=== PATIENT | female | born 1960 | race African-American/Black ===

== ENCOUNTER 2020-03-21 23:40 | Emergency (ER) | payer OTHER ==
[~2020-03-21] VITALS: Ht 165.1 cm; Wt 81.6 kg
--- NOTE | 2020-03-21 23:44 | NUR ---
ED Nurse Note: [facility] [id number] brought pt from [facility] living c/o 10/10 abdominal pain with constipation, N/V for 2 days. Pt is A&OX4, VSS. PT has had these symptoms in the past.
[2020-03-21 23:47] VITALS: BP 155/99
--- NOTE | 2020-03-21 23:56 | Emergency Room Report ---
History of Present Illness General Chief Complaint: Abdominal Pain Source: Patient Present Illness HPI This is a 60-year-old female with a history of high blood pressure and acid reflux. She presents with chief complaint abdominal pain. Onset for last 3 to 4 days. Worse tonight. She had 2 episode of vomiting. No diarrhea. Last bowel movement was 5 days ago. Denies any fever or chills. Pain is diffuse in nature. Pain is sharp. Pain is 9 out of 10. No urinary complaint. Allergies: Coded Allergies: No Known Allergies (Unverified , 03/21/20) COVID-19 Screening Contact w/high risk pt: No Experienced COVID-19 symptoms?: No COVID-19 Testing performed MANAGER DRUG: No Patient History Past Medical History: see triage record, old chart reviewed, HTN Past Surgical History: Pertinent Family History: none Social History: Reports: smoking Now: No Immunizations: other Reviewed Nursing Documentation: PMH: Agreed; PSxH: Agreed Nursing Documentation-PMH Hx Hypertension: Yes Hx Gastrointestinal Problems: Yes Review of Systems Eye: Denies: eye pain, blurred vision ENT: Denies: ear pain, nose congestion, throat swelling Respiratory: Denies: cough, shortness of breath Cardiovascular: Denies: chest pain, palpitations Gastrointestinal: Reports: abdominal pain, nausea, vomiting; Denies: diarrhea Musculoskeletal: Denies: back pain, joint pain Skin: Denies: rash Neurological: Denies: headache, numbness Endocrine: Denies: increased thirst, increased urine Hematologic/Lymphatic: Denies: easy bruising All Other Systems: negative except mentioned in HPI Physical Exam Vital Signs Date Time Temp Pulse Resp B/P (MAP) Pulse Ox O2 Delivery O2 Flow Rate FiO2 03/21/20 23:41 98.8 97 16 155/99 (117) 97 Room Air Vitals with high blood pressure Sp02 EP Interpretation: reviewed, normal General Appearance: well appearing, no apparent distress, alert, obese Head: normocephalic, atraumatic Eyes: bilateral eye PERRL, bilateral eye EOMI ENT: hearing grossly normal, normal pharynx Neck: full range of motion, supple, no meningismus Respiratory: chest non-tender, lungs clear, normal breath sounds Cardiovascular #1: regular rate, rhythm, no murmur Gastrointestinal: normal bowel sounds, no mass, no organomegaly, no bruit, non- distended, tenderness - Diffuse Musculoskeletal: back normal, normal range of motion, gait/station normal Psychiatric: mood/affect normal Medical Decision Making Diagnostic Impression: Primary Impression: Abdominal pain Qualified Codes: R10.84 - Generalized abdominal pain Additional Impressions: UTI (urinary tract infection) Qualified Codes: N30.00 - Acute cystitis without hematuria Fibroid PCP (phencyclidine) abuse Paraesophageal hiatal hernia ER Course Presents with abdominal pain. Pain is well controlled now. No evidence of any obstruction or acute abdomen. Findings are chronic in nature. Will discharge home. Dose of antibiotics given here. CT/MRI/US Diagnostic Results CT/MRI/US Diagnostic Results : Imaging Test Ordered: CT abdomen and pelvis Impression Read by radiologist. Large fibroid. Moderate hiatal hernia. Hepatomegaly with fatty liver. Last Vital Signs Date Time Temp Pulse Resp B/P (MAP) Pulse Ox O2 Delivery O2 Flow Rate FiO2 03/21/20 23:47 97 16 Room Air 03/21/20 23:47 98.8 155/99 97 Status: improved Disposition: HOME, SELF-CARE Condition: Stable Scripts Omeprazole Magnesium (PRILOSEC OTC) 20 Mg Tablet.dr 20 MG ORAL DAILY, #30 TAB Prov: Jeremy Parsons MD 03/22/20 Nitrofurantoin Monohyd/M-Cryst (Nitrofurantoin [place]-Mcr 100 mg) 100 Mg Capsule 100 MG ORAL Q12H, #14 CAP Prov: Jeremy Parsons MD 03/22/20 Patient Instructions: Abdominal Pain, Adult Additional Instructions: Stop using drugs. Follow-up with your doctor in 7 days. Return if symptoms worsen. Jeremy Prasons MD Mar 21, 2020 23:56
[2020-03-22] MEDS ORDERED: Morphine Sulfate 4mg/ml Inj (IV USE ONLY) IVP ONE
[2020-03-22] MEDS ORDERED: Omnipaque-300 100ml vial INJ PRN
[2020-03-22 00:24] LABS: BASOPHILS % (AUTO) 1.1 % (0.0-2.0); EOSINOPHILS % (AUTO) 1.1 % (0.0-3.0); HEMOGLOBIN 12.6 G/DL (12.0-16.0); LYMPHOCYTES % (AUTO) 45.8 % (20.0-45.0); MEAN CORPUSCULAR VOLUME 86 FL (80-99); MONOCYTES % (AUTO) 5.9 % (1.0-10.0); NEUTROPHILS % (AUTO) 46.2 % (45.0-75.0); PLATELET COUNT 165 K/UL (150-450); RED BLOOD COUNT 4.55 M/UL (4.20-5.40); RED CELL DISTRIBUTION WIDTH 14.8 % (11.6-14.8); WHITE BLOOD COUNT 7.7 K/UL (4.8-10.8)
[2020-03-22 00:25] LABS: BILIRUBIN, URINE NEGATIVE (NEGATIVE); GLUCOSE, URINE (UA) NEGATIVE (NEGATIVE); KETONES,URINE NEGATIVE (NEGATIVE); LEUKOCYTE ESTERASE ,URINE NEGATIVE (NEGATIVE); NITRITE,URINE POSITIVE (NEGATIVE); PH,URINE 6.5 (4.5-8.0); PROTEIN,URINE NEGATIVE (NEGATIVE); UROBILINOGEN,URINE NORMAL MG/DL (0.0-1.0)
[2020-03-22 00:27] LABS: COLOR,URINE YELLOW
[2020-03-22 00:32] LABS: ANION GAP 7 mmol/L (5-15); BLOOD UREA NITROGEN 17 mg/dL (7-18); CALCIUM 9.3 MG/DL (8.5-10.1); CARBON DIOXIDE 31 MMOL/L (21-32); CHLORIDE 105 MMOL/L (98-107); CREATININE 1.2 MG/DL (0.55-1.30); POTASSIUM 3.8 MMOL/L (3.5-5.1); SODIUM 143 MMOL/L (136-145)
[2020-03-22 00:35] LABS: APPEARANCE,URINE CLOUDY
[2020-03-22 00:36] LABS: ALANINE AMINOTRANSFERASE 107 U/L (12-78); ALBUMIN 3.9 G/DL (3.4-5.0); ALKALINE PHOSPHATASE 103 U/L (46-116); ASPARTATE AMINO TRANSFERASE 118 U/L (15-37); BILIRUBIN,TOTAL 0.2 MG/DL (0.2-1.0)
[2020-03-22] MEDS ORDERED: cefTRIAXone 1 GM in NS 55 ML IVPB ONE (01:00)
--- NOTE | 2020-03-22 01:13 | NUR ---
ED Nurse Note: Pt to Ct
--- NOTE | 2020-03-22 01:30 | NUR ---
ED Nurse Note: Pt back from CT
--- NOTE | 2020-03-22 02:06 | Diagnostic Imaging Report ---
EXAM: CT Abdomen and Pelvis With Intravenous Contrast CLINICAL HISTORY: ABD PAIN TECHNIQUE: Axial computed tomography images of the abdomen and pelvis with intravenous contrast. CTDI is 9.8 mGy and DLP is 516.6 mGy-cm. One or more of the following dose reduction techniques were used: automated exposure control, adjustment of the mA and/or kV according to patient size, use of iterative reconstruction technique. COMPARISON: No relevant prior studies available. FINDINGS: Lung bases: No mass. No consolidation. ABDOMEN: Liver: Enlarged with steatosis. Gallbladder and bile ducts: Unremarkable. Pancreas: Unremarkable. Spleen: Unremarkable. Adrenals: Unremarkable. Kidneys and ureters: No hydronephrosis. Mildly scarred right kidney. Cysts bilaterally. Stomach and bowel: No bowel obstruction. No bowel wall thickening. Moderate paraesophageal hernia. PELVIS: Appendix: No evidence of appendicitis. Bladder: Unremarkable. Reproductive: Partially calcified 6.7 cm mass in the uterus. ABDOMEN and PELVIS: Intraperitoneal space: 12 mm cystic lesion in the right midabdomen, nonspecific. Bones/joints: No acute fractures. Soft tissues: Unremarkable. Vasculature: No abdominal aortic aneurysm. Lymph nodes: No enlarged lymph nodes. IMPRESSION: 1. Moderate paraesophageal hernia. 2. Hepatomegaly with steatosis. 3. Large fibroid.
[2020-03-22] MEDS ORDERED: MACROBID100 MG ORAL (02:33)
[2020-03-22] MEDS ORDERED: PRILOSEC OTC20 MG ORAL (02:33)
[2020-03-22 02:40] VITALS: BP 148/89
--- NOTE | 2020-03-22 02:40 | NUR ---
ER DISCHARGE NOTE: Patient is cleared to be discharged per ERMD, pt is aox4, on room air, with stable vital signs. pt was given dc and prescription instructions, pt was able to verbalize understanding, pt id band and iv site removed without complications. pt is able to ambulate with steady gait. pt took all belongings. [facility]
== END 2020-03-22 02:40 | disposition home or self-care (01) ==
LOC: EDBD 23:40 → EMR 23:55
DX: R10.84 Generalized abdominal pain (principal); N30.00 Acute cystitis without hematuria; D25.9 Leiomyoma of uterus, unspecified; F16.10 Hallucinogen abuse, uncomplicated; K44.9 Diaphragmatic hernia without obstruction or gangrene; I10 Essential (primary) hypertension; F17.200 Nicotine dependence, unspecified, uncomplicated; E66.9 Obesity, unspecified; K76.0 Fatty (change of) liver, not elsewhere classified; Z68.30 Body mass index [BMI] 30.0-30.9, adult
CPT/HCPCS: 36415; 74177; 80053; 80307; 81003; 83690; 85025; 87086; 96361; 96365; 96375; J0696; J2270; J2405; J7030; Q9967; Z7502; 99284